=== PATIENT | female | born 1935 | race Caucasian/White ===

== ENCOUNTER 2021-11-07 16:12 | Emergency (ER) | payer OTHER, MEDICAID ==
[~2021-11-07] VITALS: Ht 152.4 cm; Wt 57.6 kg
[2021-11-07 16:12] VITALS: BP 200/75
--- NOTE | 2021-11-07 16:12 | NUR ---
KYLE ALS TO ER BED 5
--- NOTE | 2021-11-07 17:00 | NUR ---
85YO FEMALE PT BIBA FROM HOME C/O INCREASED L SIDED CHEST PAIN W/O RADIATION X8AM. PT WAS GIVEN NITRO DURING TX AND DENIES PAIN AT THIS TIME. ON 2L VIA NC AT BASELINE. DENIES N/V/D, SOB, FEVER OR CHILLS. STATES COMPLETING DIALYSIS TODAY, SITE ON R SIDE OF CHEST. PT AAOX4, NO VISIBLE DISTRESS. RSPIRATIONS EVEN AND UNLABORED. HOB POSITIONED PER COMFORT, BED AT LOWEST POSITION W/ BED RAILS UP X2. HX: CHF, HYPOTHYROID , DIALYSIS - T/TH/SAT NKA
[2021-11-07 17:20] LABS: BASOPHILS # (AUTO) 0.1 K/uL (0.00-0.22); BASOPHILS % (AUTO) 1.2 % (0.0-2.0); EOSINOPHILS # (AUTO) 0.2 K/uL (0-0.4); EOSINOPHILS % (AUTO) 2.7 % (0.0-4.0); HEMATOCRIT 36.2 % (36-48); HEMOGLOBIN 12.1 g/dL (12.0-16.0); LYMPHOCYTES % (AUTO) 35.2 % (20.5-51.1); MEAN CORPUSCULAR HEMOGLOBIN 31 pg (27-31); MEAN CORPUSCULAR HGB CONC 33 g/dL (33-37); MEAN CORPUSCULAR VOLUME 93.7 fL (80-94); MONOCYTES # (AUTO) 0.5 K/uL (0.8-1.0); MONOCYTES % (AUTO) 8.6 % (1.7-9.3); NEUTROPHILS % (AUTO) 52.3 % (42.2-75.2); PLATELET COUNT (AUTO) 268 K/uL (140-450); RED BLOOD CELL COUNT(AUTO) 3.86 MIL/uL (4.20-5.40); RED CELL DISTRIBUTION WIDTH 13.7 % (11.6-13.7); WHITE BLOOD COUNT (AUTO) 5.7 K/uL (4.8-10.8)
[2021-11-07 17:47] LABS: ALBUMIN 3.8 g/dL (3.4-5.0); ANION GAP 14.6 (8-16); ASPARTATE AMINOTRANSFERASE 23 U/L (15-37); CARBON DIOXIDE 31.3 mmol/L (21-32); CHLORIDE 99 mmol/L (98-107); CREATININE 2.9 mg/dL (0.6-1.3); GLUCOSE 97 mg/dL (74-106); POTASSIUM 4.9 mmol/L (3.5-5.1); SODIUM SERUM 140 mmol/L (136-145); TOTAL BILIRUBIN 0.4 mg/dL (0.0-1.0); UREA NITROGEN, BLOOD 13 mg/dL (7-18)
--- NOTE | 2021-11-07 19:20 | NUR ---
GRAND DAUGHTER KAT CALLED REQUESTING UPDATE -
--- NOTE | 2021-11-07 19:21 | NUR ---
REPORT GIVEN TO MIGUEL JONES. ALL QUESTIONS ANSWERED. TRANSFER OF CARE AT THIS TIME
--- NOTE | 2021-11-07 19:42 | NUR ---
DR BARRAGAN SPEAKING WITH DAUGHTER ON PHONE. PT PENDING DC
[2021-11-07 19:43] VITALS: BP 177/60
--- NOTE | 2021-11-07 19:50 | NUR ---
PATIENT PRESENTED TO ER WITH C/O OF CP . PT IS PAIN FREE. PENDING DC. DR BARRAGAN SPOKE WITH DAUGHTER ON PHONE. PT IS EYAK A&OX4. THAI SPEAKING . PT IS SLEEPING RESP EVEN AND UNLABORED. HOB ELEVATED. BED IN LOWEST POSITION. PT ON BEDSIDE [employer]. NKDA CHF RENAL DISEASE HYPERTHYROID
--- NOTE | 2021-11-07 20:38 | NUR ---
Patient discharged with v/s stable. Written and verbal after care instructions given and explained. Patient alert, oriented and verbalized understanding of instructions. [g ED.DCMODE] with [g ED.D/CMODE]. All questions addressed prior to discharge. ID band removed. Patient advised to follow up with PMD. Rx of [] given
== END 2021-11-07 20:38 | disposition home or self-care (01) ==
LOC: MED 16:12
DX: R07.9 Chest pain, unspecified (principal); Z20.822 Contact with and (suspected) exposure to COVID-19; I10 Essential (primary) hypertension; E03.9 Hypothyroidism, unspecified; N18.6 End stage renal disease; Z79.899 Other long term (current) drug therapy; Z99.2 Dependence on renal dialysis
CPT/HCPCS: 36415; 71045; 80053; 83880; 84484; 85025; 85610; 85730; 87426; 93005; 99285; Q0092